=== PATIENT | male | born 1955 | race Two or more races ===

== ENCOUNTER 2020-10-18 08:00 | Outpatient (CLI) | payer OTHER | END 2020-10-18 23:59 | disposition home or self-care (01) | LOC: LAB 08:00 | PROVIDERS: ATTEND Specialist | DX: Z01.812 Encounter for preprocedural laboratory examination (principal); Z20.822 Contact with and (suspected) exposure to COVID-19 | CPT/HCPCS: C9803; U0003 ==

== ENCOUNTER 2020-10-24 05:05 | Inpatient (IN) | payer OTHER ==
[~2020-10-24] VITALS: Ht 167.6 cm; Wt 76.2 kg
--- NOTE | 2020-10-24 05:30 | NUR ---
MS RN ADMITTING NOTES ADMITTED A 65 YEAR OLD MALE PATIENT FOR RIGHT TOTAL KNEE ARTHROPLASTY TODAY AT 6:30 AM. PATIENT IS AMBULATORY, ALERT AND ORIENTED X 4. ON ROOM AIR TOLERATING WELL. STARTED AN IV ACCESS ON PATIENT'S RIGHT HAND GAUGE #18, PATENT AND FLUSHES WELL. CONSENT FOR SURGERY AND ANESTHESIA SIGNED BY PATIENT. SAFETY PRECAUTIONS OBSERVED. PATIENT WAS PICKED UP BY [facility]OTH BLEACHING RANGE BACK TENDER AT 0600. WILL ENDORSE TO ONCOMING SHIFT.
[2020-10-24] MEDS ORDERED: BUPIVACAINE 0.5 % PF 150 MG/30 ML VIAL ONE (06:02)
[2020-10-24] MEDS ORDERED: BACITRACIN 50000 UNITS/VIAL ONE (06:02)
[2020-10-24] MEDS ORDERED: ANESTHESIA TRAY IN PYXIS 1 EA TRAY MC ONE (06:02)
[2020-10-24] MEDS ORDERED: FENTANYL PF 100MCG/2ML AMPUL ONE (06:23)
[2020-10-24] MEDS ORDERED: MIDAZOLAM HCL 2 MG/2ML VIAL ONE (06:49)
[2020-10-24] MEDS ORDERED: TRANEXAMIC ACID 3,000 MG in SODIUM CHLORIDE IRRIG SOLUTION 70 ML IR ONE (07:00)
[2020-10-24] MEDS ORDERED: CLONIDINE HCL 0.1 MG TABLET PO PRN (10:00)
[2020-10-24] MEDS ORDERED: ONDANSETRON HCL/PF 4 MG/2 ML VIAL IVP PRN (10:00)
[2020-10-24] MEDS ORDERED: MAG HYDROX/AL HYDROX/SIMETH 30 ML UDC PO PRN (10:00)
[2020-10-24] MEDS ORDERED: diphenhydrAMINE HCL 25 MG CAPSULE PO PRN (10:00)
[2020-10-24] MEDS ORDERED: MENTHOL/CETYLPYRD (CEPACOL) 1 LOZ LOZENGE MM PRN (10:00)
[2020-10-24] MEDS ORDERED: MAGNESIUM HYDROXIDE 30 ML UDC PO PRN (10:00)
[2020-10-24] MEDS ORDERED: NALOXONE HCL 0.4 MG/ML AMPUL IV PRN (10:00)
[2020-10-24] MEDS ORDERED: OMEP20CA15 PO (11:10)
[2020-10-24] MEDS ORDERED: AMLO10TA4 PO (11:10)
[2020-10-24] MEDS: HYDROMORPHONE 1 MG/1 ML DISP.SYRIN IV PRN ×2 (11:49→13:39)
[2020-10-24] MEDS ORDERED: DRONABINOL (2.5 MG) 2.5 MG CAPSULE PO ONE ×2 (12:00→13:36)
[2020-10-24] MEDS ORDERED: ACETAMINOPHEN 325 MG TABLET PO PRN (12:00)
[2020-10-24] MEDS ORDERED: IV D5/0.45 NACL 1,000 ML IV PRN (12:00)
[2020-10-24] MEDS: TAMSULOSIN 0.4 MG CAP.SR.24H PO SCH (13:39)
[2020-10-24] MEDS: AMLODIPINE BESYLATE 10 MG TABLET PO SCH (13:39)
[2020-10-24 16:00] VITALS: BP 146/63
[2020-10-24] MEDS: oxyCODONE IR immediate release 5 MG PO PRN ×3 (16:00→23:27)
[2020-10-24] MEDS: ANCEF 1 GM/50 ML D5W IV SCH ×2 (16:49→23:15)
[2020-10-24] MEDS: DOCUSATE SODIUM 100 MG CAPSULE PO SCH (16:49)
[2020-10-24] MEDS: HYDROMORPHONE 1 MG/1 ML DISP.SYRIN SQ PRN ×2 (17:19→22:19)
[2020-10-24] MEDS ORDERED: FAMOTIDINE (20 MG) 20 MG TABLET PO SCH (21:00)
[2020-10-24] MEDS: DRONABINOL (2.5 MG) 2.5 MG CAPSULE PO SCH (21:11)
[2020-10-24] MEDS ORDERED: SENNOSIDES 8.6 MG TABLET PO SCH (22:00)
[2020-10-25] MEDS: HYDROMORPHONE 1 MG/1 ML DISP.SYRIN SQ PRN ×3 (01:46→15:01)
[2020-10-25] MEDS ORDERED: PANTOPRAZOLE 40 MG TABLET.DR PO SCH (07:30)
[2020-10-25 08:00] VITALS: BP 135/83
[2020-10-25] MEDS: DOCUSATE SODIUM 100 MG CAPSULE PO SCH ×2 (08:29→17:28)
[2020-10-25] MEDS: TAMSULOSIN 0.4 MG CAP.SR.24H PO SCH (08:30)
[2020-10-25] MEDS: AMLODIPINE BESYLATE 10 MG TABLET PO SCH (08:30)
[2020-10-25] MEDS: DRONABINOL (2.5 MG) 2.5 MG CAPSULE PO SCH (08:30)
[2020-10-25] MEDS ORDERED: ASPIRIN 325 MG TABLET PO SCH (09:00)
[2020-10-25] MEDS ORDERED: NICOTINE PATCH (21MG) 21 MG PATCH.TD24 TD SCH (09:00)
[2020-10-25 16:00] VITALS: BP 131/84
--- NOTE | 2020-10-25 19:48 | NUR ---
MS RN OPENING NOTES: RECEIVED PATIENT AWAKE IN BED, BED IN LOW POSITION, CALL LIGHTS WITHIN REACH, NO COMPLAIN OF PAIN AND DISCOMFORT AT THIS TIME FOR D/C TODAY AWAITING FOR FAMILY PATIENT IS A/OX3 AMBULATORY, WITH IV LINE AT R HAND #18 SL, PATIENT KEPT CLEAN AND DRY, ALL NEEDS MET , WILL CONTINIE TO MONITOR.
--- NOTE | 2020-10-25 20:30 | NUR ---
ROLLER EMBOSSER NOTE: PATIENT WAS BALL WARPER TENDER BY FAMILY, NO COMPLAIN OF PAIN AND DISCOMFORT, D/C INSTRUCTION AND PAPERS GIVEN, TAGS AND IV LINE REMOVE, PATIENT KEPT CLEAN JEN, INVENTORIES WERE TURN OVER AND SIGN, ALL NEEDS MET ESCORTED OUT TO THE FLOOR WITH FAMIILY VIA WHEELCHAIR TO PARKING LOT AT 2029.
== END 2020-10-25 20:30 | disposition home health service (06) | DRG 470 ==
LOC: DS 05:05 → MED 05:18
PROVIDERS: ADMIT Nurse Practitioner Acute Care; ATTEND Nurse Practitioner Acute Care
PROC: 0SRC0J9 Replacement of Right Knee Joint with Synthetic Substitute, Cemented, Open Approach (ICD-10-PCS; principal; 2020-10-24)
DX: M17.11 Unilateral primary osteoarthritis, right knee (principal); K21.9 Gastro-esophageal reflux disease without esophagitis; I10 Essential (primary) hypertension; E66.9 Obesity, unspecified; Z68.27 Body mass index [BMI] 27.0-27.9, adult; F17.210 Nicotine dependence, cigarettes, uncomplicated; F12.90 Cannabis use, unspecified, uncomplicated; Z71.6 Tobacco abuse counseling; Z71.3 Dietary counseling and surveillance
CPT/HCPCS: 36415; 86850-TC; 87081-TC; 88305-TC; 88311-TC; 97116-TC; 97530-TC; A4217; C1713; C1776; G0378; J0690; J1170; J2250; J2405; J2704; J3010; J3490; J7060; L1830; Q0167